=== PATIENT | female | born 1965 | race Caucasian/White ===

== ENCOUNTER → 2017-08-23 | Outpatient (CLI) | payer OTHER | END | disposition home or self-care (01) | LOC: LAB 13:32 | PROVIDERS: Registered Nurse | DX: Z12.4 Encounter for screening for malignant neoplasm of cervix (principal) | CPT/HCPCS: G0123 ==

== ENCOUNTER → 2018-11-23 | Outpatient (CLI) | payer OTHER ==
[2018-11-25 14:07] LABS: HPV 16 Negative (Negative); HPV 18 Negative (Negative); HPV OTHER HR TYPES Positive (Negative)
== END | disposition home or self-care (01) ==
LOC: LAB 17:11 → LAB SHORT 17:11
PROVIDERS: Nurse Practitioner Women's Health
DX: Z12.4 Encounter for screening for malignant neoplasm of cervix (principal); N89.8 Other specified noninflammatory disorders of vagina; Z91.89 Other specified personal risk factors, not elsewhere classified
CPT/HCPCS: 87070; 87205; 87624; 87625; G0123

== ENCOUNTER → 2019-06-09 | Outpatient (CLI) | payer OTHER | END | disposition home or self-care (01) | LOC: LAB SHORT 12:18 → PLD 12:18 | DX: N84.0 Polyp of corpus uteri (principal); N87.9 Dysplasia of cervix uteri, unspecified | CPT/HCPCS: 88305 ==

== ENCOUNTER → 2022-09-30 | Outpatient (CLI) | payer OTHER ==
[~2022-09-30] MED LIST: LOSARTAN-HCTZ1 EAC1; LOSARTAN-HCTZ1 EAC5 PO; MULTI-VITAMIN1 EAC2 PO; NAPR550; POTA8; PROG100; PROGESTERONE200 MG; VITAMIN D31000 UNIT PO; ZYRTEC10 M1 PO
== END | disposition home or self-care (01) ==
LOC: LAB SHORT 16:15
DX: N39.0 Urinary tract infection, site not specified (principal)
CPT/HCPCS: 87086

== ENCOUNTER 2023-08-19 06:33 | Day surgery (SDC) | payer OTHER ==
[2023-08-19] VITALS (18 sets, daily range): BP systolic 111–167; BP diastolic 56–95
[~2023-08-19] VITALS: Ht 165.1 cm; Wt 93.3 kg
[~2023-08-19 06:33] MED LIST changes: +Diovan320 MG PO; +FERSU300 PO
[2023-08-19] MEDS ORDERED: VITAMIN D325 MC3 PO (06:53)
--- NOTE | 2023-08-19 07:15 | NUR ---
Ambulatory in Day Surgery History, Chart, Medications and Allergies reviewed before start of procedure. Pre-Op teaching done. Pt verbalizes understanding.
--- NOTE | 2023-08-19 11:20 | NUR ---
ARRIVAL TO UNIT PT ARRIVED OT UNIT FROM PACU VIA GURNEY, TRANSFERED WITH SLIDE SHEET TO BED. PT SITTING UP IN BED [id number]. REPORTS PAIN LEVEL OF 3/10 BUT STATES TOLERABLE FOR HER. TROY PAD IN PLACE, DRY AT THIS TIME. LAP SITES X2 WITH STERI STRIPS. CDI. SLIGHT BRUISING ON ABD. OQUENDO IN PLACE PATENT AND DRAINING. EDUCATED PATIENT ON ORDERS TO REMOVE ONCE SHE IS AMBULATING. PT TOLERATING SMALL SIPS OF WATER AND JELLO. NO NAUSEA REPORTED.
[2023-08-19 13:53] LABS: BASOPHILS ABSOLUTE AUTO 0.01 K/mm3 (0.00-0.23); BASOPHILS PERCENT AUTO 0 % (0-2); EOSINOPHILS ABSOLUTE AUTO 0.02 K/mm3 (0.00-0.68); EOSINOPHILS PERCENT AUTO 0 % (0-6); Hematocrit 42.3 % (33.0-51.0); Hemoglobin 14.2 g/dL (11.5-16.0); IMMATURE GRAN ABSOLUTE AUTO 0.06 K/mm3 (0.00-0.10); IMMATURE GRAN PERCENT AUTO 1 % (0-1); LYMPHOCYTES PERCENT AUTO 4 % (21-46); MONOCYTES ABSOLUTE AUTO 0.27 K/mm3 (0.16-1.47); MONOCYTES PERCENT AUTO 2 % (4-13); Mean Corpuscular HGB 29.1 pg (26.0-34.0); Mean Corpuscular HGB Conc 33.6 g/dL (31.5-36.5); Mean Corpuscular Volume 87 fL (80-100); Mean Platelet Volume 11.1 fL (9.1-12.4); NEUTROPHILS PERCENT AUTO 93 % (41-73); Platelet Count 214 K/mm3 (150-400); RDW Coefficient Variation 14.2 % (11.7-14.2); RDW Standard Deviation 45.4 fL (35.1-46.3); Red Blood Cell Count 4.88 M/mm3 (3.80-5.20); White Blood Cell Count 13.26 K/mm3 (4.00-11.30)
[2023-08-19] MEDS ORDERED: IBUP800 PO (14:18)
[2023-08-19] MEDS ORDERED: Percocet 5-3251 EACH PO (14:19)
--- NOTE | 2023-08-19 15:23 | NUR ---
PT UP AND AMBULATING TO THE HALLWAY. OQUENDO REMOVED. PT TOLERATED WELL. ENCOURAGING PO HYDRATION. PT CONTINUES TO REPORT PAIN TOLERABLE. NO NAUSEA.
--- NOTE | 2023-08-19 18:39 | NUR ---
DISCHARGE PT UP AND VOIDING. TOLERATING DIET, NO NAUSEA. PAIN WELL CONTROLLED PER EMAR. NO DRAINAGE ON TROY PAD. PRESCRIPTION PICKED UP PRIOR TO DISCHARGE. ESCORTED OUT WITH WHEELCHAIR. ALL BELONGINGS WITH PATIENT NO FURTHER QUESTIONS AT THIS TIME.
== END 2023-08-19 18:41 | disposition home or self-care (01) ==
LOC: ORSCMMR 06:33 → ORD 08:00 → ORSCMMR 08:00 → SURS 10:45 → ORSCMMR 18:41
PROVIDERS: Obstetrics & Gynecology
PROC: 0UT9FZZ Resection of Uterus, Via Natural or Artificial Opening With Percutaneous Endoscopic Assistance (ICD-10-PCS; principal; 2023-08-19 08:00)
PROC: 0UT7FZZ Resection of Bilateral Fallopian Tubes, Via Natural or Artificial Opening With Percutaneous Endoscopic Assistance (ICD-10-PCS; principal; 2023-08-19 08:00)
PROC: 0JQC0ZZ Repair Pelvic Region Subcutaneous Tissue and Fascia, Open Approach (ICD-10-PCS; principal; 2023-08-19 08:00)
DX: N81.2 Incomplete uterovaginal prolapse (principal); K66.0 Peritoneal adhesions (postprocedural) (postinfection); N80.03 Adenomyosis of the uterus; D25.9 Leiomyoma of uterus, unspecified; N81.6 Rectocele; I10 Essential (primary) hypertension; G47.33 Obstructive sleep apnea (adult) (pediatric); K21.9 Gastro-esophageal reflux disease without esophagitis; Z79.899 Other long term (current) drug therapy; Z85.3 Personal history of malignant neoplasm of breast; Z68.34 Body mass index [BMI] 34.0-34.9, adult
CPT/HCPCS: 36415; 85025; 88307; A9270; J0690; J1885; J2250; J3010; J7120